=== PATIENT | female | born 1950 | race Two or more races ===

== ENCOUNTER 2018-02-26 07:56 | Outpatient (CLI) | payer OTHER | END 2018-02-26 07:59 | disposition home or self-care (01) | LOC: SONOGRAMA 07:56 | DX: E04.2 Nontoxic multinodular goiter (principal) ==

== ENCOUNTER 2018-07-27 08:57 | Outpatient (CLI) | payer OTHER | END 2018-07-27 08:59 | disposition home or self-care (01) | LOC: SONOGRAMA 08:57 | DX: E04.1 Nontoxic single thyroid nodule (principal) ==

== ENCOUNTER 2019-07-05 08:08 | Outpatient (CLI) | payer OTHER | END 2019-07-05 08:12 | disposition home or self-care (01) | LOC: SONOGRAMA 08:08 | DX: E03.8 Other specified hypothyroidism (principal); E04.8 Other specified nontoxic goiter ==

== ENCOUNTER 2020-12-04 07:46 | Outpatient (CLI) | payer OTHER | END 2020-12-04 07:53 | disposition home or self-care (01) | LOC: SONOGRAMA 07:46 | PROVIDERS: ATTEND Pathology Anatomic Pathology & Clinical Pathology | DX: D34 Benign neoplasm of thyroid gland (principal); E04.8 Other specified nontoxic goiter ==

== ENCOUNTER 2021-11-07 11:12 | Outpatient (CLI) | payer OTHER | END 2021-11-07 11:19 | disposition home or self-care (01) | LOC: SONOGRAMA 11:12 | PROVIDERS: ATTEND Internal Medicine Endocrinology, Diabetes & Metabolism | DX: E04.8 Other specified nontoxic goiter (principal) ==

== ENCOUNTER 2021-11-22 10:29 | Outpatient (CLI) | payer OTHER | END 2021-11-22 10:33 | disposition home or self-care (01) | LOC: SONOGRAMA 10:29 | PROVIDERS: ATTEND Pathology Anatomic Pathology & Clinical Pathology | DX: E04.8 Other specified nontoxic goiter (principal) ==

== ENCOUNTER 2022-05-25 03:28 | Emergency (ER) | payer OTHER ==
[~2022-05-25] VITALS: Ht 157.5 cm; Wt 72.6 kg
[2022-05-25] MEDS ORDERED: METFORMIN HCL500 M3 (03:57)
[2022-05-25] MEDS ORDERED: NEURONTIN300 MG (03:59)
[2022-05-25] MEDS ORDERED: IRON240 MG (03:59)
[2022-05-25] MEDS ORDERED: COZAAR50 MG (03:59)
[2022-05-25] MEDS ORDERED: PROTONIX20 MG (03:59)
[2022-05-25] MEDS ORDERED: SIMVASTATIN5 MG (03:59)
[2022-05-25] MEDS ORDERED: FOLIC ACID20 MG (03:59)
[2022-05-25] MEDS ORDERED: INTESTINEX680 M1 PO (08:17)
[2022-05-25] MEDS ORDERED: CLINDAMYCIN HC300 MG PO (08:17)
[2022-05-25] MEDS ORDERED: DICLOFENAC POTA50 MG PO (08:17)
== END 2022-05-25 08:43 | disposition home or self-care (01) ==
LOC: ER 03:28
DX: L03.111 Cellulitis of right axilla (principal)

== ENCOUNTER 2022-05-28 12:08 | Inpatient (IN) | payer OTHER ==
[~2022-05-28] VITALS: Ht 160 cm; Wt 72.6 kg
[~2022-05-28 12:08] MED LIST: CLINDAMYCIN HC300 MG PO; COZAAR50 MG; DICLOFENAC POTA50 MG PO; FOLIC ACID20 MG; INTESTINEX680 M1 PO; IRON240 MG; METFORMIN HCL500 M3; NEURONTIN300 MG; PROTONIX20 MG; SIMVASTATIN5 MG
--- NOTE | 2022-05-28 12:56 | NUR ---
SE RECIBE PTE ALERTA Y ORIENTADA X3,REFIERE TENR CELULITIS EN LE SENO DERECHO Y LA AXILA DERECHA ,LA REFIERE EL DR.LOPEZ HUI.
--- NOTE | 2022-05-28 15:14 | NUR ---
EVALUA PTE. SE EDUCA SOBRE [place] MEDICO EL CUAL REFIERE COMPRENDER. SE REALIZAN MUESTRAS DE LABORATORIO BAJO MEDIDAS ASEPTICAS. SE ADMINISTRA IV'S SARAH ORDEN MEDICA. PTE MANEJADA POR .
[2022-05-29] MEDS ORDERED: HYDROCHLOROTHIA25 MG (08:31)
[2022-05-29] MEDS ORDERED: MAXIMUM D3325 MCG (08:31)
[2022-05-29] MEDS ORDERED: ALENDRONATE SOD70 MG (08:31)
[2022-05-29] MEDS ORDERED: FERROUS SULFAT325 MG (08:31)
[2022-06-06] MEDS ORDERED: SIMVASTATIN20 MG PO (09:56)
[2022-06-06] MEDS ORDERED: BACTRIM DS TAB1 EACH PO (09:56)
[2022-06-06] MEDS ORDERED: NIFEDIPINE ER60 MG PO (09:56)
[2022-06-06] MEDS ORDERED: LOSARTAN POTAS100 MG PO (09:56)
== END 2022-06-06 16:09 | disposition home or self-care (01) | DRG 603 ==
LOC: ER 12:08 → MEDI 19:05
PROVIDERS: ADMIT Internal Medicine; ATTEND Internal Medicine
PROC: 0HDBXZZ Extraction of Right Upper Arm Skin, External Approach (ICD-10-PCS; principal; 2022-05-29)
PROC: 0HD5XZZ Extraction of Chest Skin, External Approach (ICD-10-PCS; 2022-05-29)
PROC: 0HD5XZZ Extraction of Chest Skin, External Approach (ICD-10-PCS; 2022-06-05)
PROC: 0JD63ZZ Extraction of Chest Subcutaneous Tissue and Fascia, Percutaneous Approach (ICD-10-PCS; 2022-06-05)
DX: L03.111 Cellulitis of right axilla (principal); N61.1 Abscess of the breast and nipple; L02.411 Cutaneous abscess of right axilla; D64.9 Anemia, unspecified; B95.62 Methicillin resistant Staphylococcus aureus infection as the cause of diseases classified elsewhere; G43.809 Other migraine, not intractable, without status migrainosus; I10 Essential (primary) hypertension; E11.9 Type 2 diabetes mellitus without complications; Z79.4 Long term (current) use of insulin

== ENCOUNTER 2022-06-15 17:11 | Emergency (ER) | payer OTHER ==
[~2022-06-15] VITALS: Ht 160 cm; Wt 72.6 kg
[~2022-06-15 17:11] MED LIST changes: +ALENDRONATE SOD70 MG; +BACTRIM DS TAB1 EACH PO; +FERROUS SULFAT325 MG; +HYDROCHLOROTHIA25 MG; +LOSARTAN POTAS100 MG PO; +MAXIMUM D3325 MCG; +NIFEDIPINE ER60 MG PO; +SIMVASTATIN20 MG PO
[2022-06-15] MEDS ORDERED: ADALAT CC60 MG PO (17:30)
== END 2022-06-15 20:26 | disposition home or self-care (01) ==
LOC: ER 17:11
DX: M54.6 Pain in thoracic spine (principal); E11.9 Type 2 diabetes mellitus without complications; Z79.84 Long term (current) use of oral hypoglycemic drugs; I10 Essential (primary) hypertension; Z88.0 Allergy status to penicillin; Z88.1 Allergy status to other antibiotic agents

== ENCOUNTER 2022-10-08 11:16 | Outpatient (CLI) | payer OTHER ==
[~2022-10-08 11:16] MED LIST changes: +ADALAT CC60 MG PO
== END 2022-10-08 11:25 | disposition home or self-care (01) ==
LOC: SONOGRAMA 11:16
PROVIDERS: ATTEND Internal Medicine Endocrinology, Diabetes & Metabolism
DX: E04.8 Other specified nontoxic goiter (principal)

== ENCOUNTER 2022-10-24 09:45 | Outpatient (CLI) | payer OTHER | END 2022-10-24 10:12 | disposition home or self-care (01) | LOC: MAMO-SONO 09:45 | PROVIDERS: ATTEND General Practice | DX: Z12.31 Encounter for screening mammogram for malignant neoplasm of breast (principal); Z12.39 Encounter for other screening for malignant neoplasm of breast; I13.10 Hypertensive heart and chronic kidney disease without heart failure, with stage 1 through stage 4 chronic kidney disease, or unspecified chronic kidney disease; N18.31 Chronic kidney disease, stage 3a ==

== ENCOUNTER 2022-11-01 12:58 | Outpatient (CLI) | payer OTHER | END 2022-11-01 12:59 | disposition home or self-care (01) | LOC: NUCLEAR 12:58 | PROVIDERS: ATTEND General Practice | DX: M81.0 Age-related osteoporosis without current pathological fracture (principal) ==

== ENCOUNTER 2023-12-10 09:56 | Outpatient (CLI) | payer OTHER | END 2023-12-10 10:00 | disposition home or self-care (01) | LOC: RAD 09:56 | PROVIDERS: ATTEND General Practice | DX: Z12.39 Encounter for other screening for malignant neoplasm of breast (principal); Z12.31 Encounter for screening mammogram for malignant neoplasm of breast; I11.9 Hypertensive heart disease without heart failure; Z88.0 Allergy status to penicillin ==

== ENCOUNTER 2024-04-02 07:53 | Outpatient (CLI) | payer OTHER | END 2024-04-02 07:59 | disposition home or self-care (01) | LOC: SONOGRAMA 07:53 | PROVIDERS: ATTEND Internal Medicine Endocrinology, Diabetes & Metabolism | DX: E04.8 Other specified nontoxic goiter (principal) ==

== ENCOUNTER 2024-12-08 09:35 | Outpatient (CLI) | payer OTHER | END 2024-12-08 09:50 | disposition home or self-care (01) | LOC: MAMO-SONO 09:35 | PROVIDERS: ATTEND General Practice | DX: Z12.31 Encounter for screening mammogram for malignant neoplasm of breast (principal); Z12.39 Encounter for other screening for malignant neoplasm of breast ==

== ENCOUNTER 2024-12-23 11:28 | Outpatient (CLI) | payer OTHER | END 2024-12-23 11:29 | disposition home or self-care (01) | LOC: NUCLEAR 11:28 | PROVIDERS: ATTEND General Practice | DX: M81.0 Age-related osteoporosis without current pathological fracture (principal) ==